=== PATIENT | female | born 1995 ===

== ENCOUNTER 2016-11-15 00:55 | Emergency (ER) | payer OTHER ==
--- NOTE | 2016-11-19 15:07 | ER ---
ADMIT: 11/15/2016 RM/LOC: ER [facility] MR#: [id number] [address] [id number] CASIMIRO VAUGHN [address] [place] [address] [id number] Emergency Room Report SEX: F AGE: 21 : 1995 DATE: 11/15/2016 TIME: 0055 hours. Please refer to my T-sheet for complete H and P. HISTORY OF PRESENT ILLNESS: Briefly, the patient is 21-year-old who comes in with 7 hours of back pain. 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 She does a lot of lifting. She does not know when she hurt it. She rates it 10/10. Had some Tylenol earlier. It hurts when she moves. PHYSICAL EXAMINATION: VITAL SIGNS: Stable. HEENT: Grossly normal. LUNGS: Clear. HEART: Regular. CHEST: Posteriorly in her rhomboidal muscle group on the left is palpable tender. Specifically in this area. EMERGENCY DEPARTMENT COURSE: I gave her [address]rin. She wanted to drive home. She is ready for discharge. ASSESSMENT: Acute left rhomboidal muscle strain. PLAN: Massage. Rest. Ice. Return if worse. Follow up with Dr. Caceres in 2-3 days if not better, and I wrote her a script for Flexeril. Warner Villegas MD/ dimitrios JOB #: [id number] CC: Warner Villegas MD, Attending Physician Racheal Caceres MD, Family Physician
== END 2016-11-15 01:46 | disposition home or self-care (01) ==
LOC: ER 00:55
DX: S29.012A Strain of muscle and tendon of back wall of thorax, initial encounter (principal); X50.9XXA Other and unspecified overexertion or strenuous movements or postures, initial encounter

== ENCOUNTER 2017-01-02 18:51 | Emergency (ER) | payer SELFPAY | END 2017-01-02 19:46 | disposition home or self-care (01) | DX: T23.002D Burn of unspecified degree of left hand, unspecified site, subsequent encounter (principal); T23.001D Burn of unspecified degree of right hand, unspecified site, subsequent encounter; Z87.891 Personal history of nicotine dependence ==